=== PATIENT | male | born 1955 | race Caucasian/White ===

== ENCOUNTER → 2019-09-06 | Outpatient (CLI) | payer OTHER, MEDICARE ==
[~2019-09-06] MED LIST: ASPI325 PO; Ambien10 MG PO; CYCL10 PO; HYDR-86 PO; OXYACE5T PO
== END | disposition home or self-care (01) ==
LOC: LAB SHORT 15:35 → LAB 15:35
DX: L60.0 Ingrowing nail (principal); B35.1 Tinea unguium
CPT/HCPCS: 87102

== ENCOUNTER → 2020-08-23 | Outpatient (CLI) | payer OTHER ==
[~2020-08-23] MED LIST changes: +ARIP10 PO; +ASPI81CH PO; +FERROUS GLUCON324 M2 PO; +TERB250 PO; +VOTRIENT200 MG
== END | disposition home or self-care (01) ==
LOC: PLD 08:34 → LAB SHORT 08:34 → LAB FUT 08-23 10:05
DX: K52.9 Noninfective gastroenteritis and colitis, unspecified (principal)
CPT/HCPCS: 87015; 87045; 87046; 87205; 87899

== ENCOUNTER → 2020-09-13 | Outpatient (CLI) | payer OTHER | END | disposition home or self-care (01) | LOC: OLS 18:30 → LAB SHORT 18:30 | DX: R19.7 Diarrhea, unspecified (principal) | CPT/HCPCS: 87015; 87045; 87046; 87177; 87205; 87209; 87899 ==

== ENCOUNTER 2020-11-06 05:05 | Day surgery (SDC) | payer OTHER ==
[~2020-11-06] VITALS: Ht 172.7 cm; Wt 88.2 kg
[~2020-11-06 05:05] MED LIST changes: -ASPI81CH PO
[2020-11-06] MEDS ORDERED: ASPI81CH PO (07:55)
--- NOTE | 2020-11-06 09:13 | NUR ---
11/06/20 0913 Salima Quiñones LATE ENTRY: PT NOTED TO HAVE RED CIRCULAR AND PAPULAR RASH ON NECK DOWN TO CHEST AND ABDOMEN. SURGEON AWARE. NO FURTHER ORDERS GIVEN. PREP SOLUTION CHANGED TO BETADINE SCRUB AND PAINT. PREP WASHED OFF WITH WARM WATER BEFORE PATIENT WAS TAKEN TO PACU
== END 2020-11-06 10:02 | disposition home or self-care (01) ==
LOC: ORSCSDS 05:05
PROVIDERS: Surgery
PROC: 05H533Z Insertion of Infusion Device into Right Subclavian Vein, Percutaneous Approach (ICD-10-PCS; principal; 2020-11-06 08:30)
PROC: B5161ZA Fluoroscopy of Right Subclavian Vein using Low Osmolar Contrast, Guidance (ICD-10-PCS; principal; 2020-11-06 08:30)
DX: C64.2 Malignant neoplasm of left kidney, except renal pelvis (principal); Z87.891 Personal history of nicotine dependence; I10 Essential (primary) hypertension; Z79.899 Other long term (current) drug therapy
CPT/HCPCS: 77001; C1788; J0690; J1100; J1642; J1885; J2405; J2704; J3010; J7120

== ENCOUNTER 2021-07-05 21:36 | Emergency (ER) | payer MEDICARE, OTHER ==
[~2021-07-05] VITALS: Ht 172.7 cm; Wt 93.9 kg
[~2021-07-05 21:36] MED LIST changes: +ASPI81CH PO
[2021-07-05] MEDS ORDERED: CABOMETYX60 MG PO (22:29)
[2021-07-05] MEDS ORDERED: OMEP20ER (22:30)
[2021-07-05] MEDS ORDERED: OMEP20ER PO (22:32)
[2021-07-05 22:52] LABS: BASOPHILS ABSOLUTE AUTO 0.02 K/mm3 (0.00-0.23); BASOPHILS PERCENT AUTO 1 % (0-2); EOSINOPHILS ABSOLUTE AUTO 0.18 K/mm3 (0.00-0.68); EOSINOPHILS PERCENT AUTO 5 % (0-6); Hematocrit 48.4 % (37.0-53.0); Hemoglobin 15.9 g/dL (13.5-17.5); IMMATURE GRAN ABSOLUTE AUTO 0.01 K/mm3 (0.00-0.10); IMMATURE GRAN PERCENT AUTO 0 % (0-1); LYMPHOCYTES PERCENT AUTO 14 % (21-46); MONOCYTES ABSOLUTE AUTO 0.19 K/mm3 (0.16-1.47); MONOCYTES PERCENT AUTO 5 % (4-13); Mean Corpuscular HGB 27.3 pg (26.0-34.0); Mean Corpuscular HGB Conc 32.9 g/dL (31.5-36.5); Mean Corpuscular Volume 83 fL (80-100); Mean Platelet Volume 8.9 fL (9.1-12.4); NEUTROPHILS ABSOLUTE AUTO 2.72 K/mm3 (1.96-9.15); NEUTROPHILS PERCENT AUTO 75 % (41-73); Platelet Count 100 K/mm3 (150-400); RDW Coefficient Variation 15.1 % (11.7-14.2); RDW Standard Deviation 44.7 fL (35.1-46.3); Red Blood Cell Count 5.83 M/mm3 (4.30-5.90); White Blood Cell Count 3.62 K/mm3 (4.00-11.30)
[2021-07-05 23:12] LABS: Alanine Aminotransfer (ALT/SGP 143 U/L (12-78); Albumin/Globulin Ratio 0.8 (0.8-1.8); Alk Phos 97 U/L (50-136); Anion Gap 7 mmol/L (6-16); Aspartate Aminotrans (AST/SGOT 69 U/L (12-37); Bilirubin, Total 0.8 mg/dL (0.1-1.0); Blood Urea Nitrogen 12 mg/dL (8-24); Bun/Creatinine Ratio 10.5 (12.0-20.0); CO2, Blood 28 mmol/L (21-32); Calcium, Blood 8.1 mg/dL (8.5-10.1); Chloride, Blood 104 mmol/L (98-108); Creatinine, Blood 1.14 mg/dL (0.60-1.20); Globulin, Blood 3.7 g/dL (2.2-4.0); Glomerular Filtration Rate >60 (60-); Glucose, Blood 135 mg/dL (70-99); Potassium, Blood 3.6 mmol/L (3.5-5.5); Sodium, Blood 139 mmol/L (136-145); Total Protein, Blood 6.7 g/dL (6.4-8.2); Troponin I <0.015 ng/mL (0.000-0.040)
== END 2021-07-06 00:05 | disposition home or self-care (01) ==
LOC: ER 21:36
PROVIDERS: Student in an Organized Health Care Education/Training Program
DX: I10 Essential (primary) hypertension (principal); R51.9 Headache, unspecified; Z79.82 Long term (current) use of aspirin; Z79.899 Other long term (current) drug therapy; Z87.891 Personal history of nicotine dependence
CPT/HCPCS: 70450; 80053; 84484; 85025; 93005; 93010; 99284-25

== ENCOUNTER 2021-07-08 20:44 | Emergency (ER) | payer MEDICARE, OTHER ==
[~2021-07-08] VITALS: Ht 172.7 cm; Wt 93.9 kg
[~2021-07-08 20:44] MED LIST changes: +CABOMETYX60 MG PO; +OMEP20ER; +OMEP20ER PO
[2021-07-08] MEDS ORDERED: HYDROCODONE-AC1 EAC7 PO (21:08)
[2021-07-08] MEDS ORDERED: Norvasc5 MG PO (22:53)
== END 2021-07-08 23:09 | disposition home or self-care (01) ==
LOC: ER 20:44
DX: I16.0 Hypertensive urgency (principal); Z79.899 Other long term (current) drug therapy; Z79.82 Long term (current) use of aspirin; Z85.528 Personal history of other malignant neoplasm of kidney
CPT/HCPCS: 36415; 93005; 93010; 99284-25; A9270; J7030

== ENCOUNTER 2021-07-16 21:08 | Emergency (ER) | payer OTHER ==
[~2021-07-16] VITALS: Ht 172.7 cm; Wt 93.9 kg
[~2021-07-16 21:08] MED LIST changes: +HYDROCODONE-AC1 EAC7 PO; +Norvasc5 MG PO
[2021-07-16 22:08] LABS: Alanine Aminotransfer (ALT/SGP 418 U/L (12-78); Albumin, Blood 3.4 g/dL (3.4-5.0); Albumin/Globulin Ratio 0.9 (0.8-1.8); Alk Phos 112 U/L (50-136); Anion Gap 6 mmol/L (6-16); Aspartate Aminotrans (AST/SGOT 161 U/L (12-37); Bilirubin, Total 0.7 mg/dL (0.1-1.0); Blood Urea Nitrogen 10 mg/dL (8-24); Bun/Creatinine Ratio 9.4 (12.0-20.0); CO2, Blood 29 mmol/L (21-32); Calcium, Blood 8.5 mg/dL (8.5-10.1); Chloride, Blood 103 mmol/L (98-108); Creatinine, Blood 1.06 mg/dL (0.60-1.20); Globulin, Blood 3.7 g/dL (2.2-4.0); Glomerular Filtration Rate >60 (60-); Glucose, Blood 182 mg/dL (70-99); Potassium, Blood 3.8 mmol/L (3.5-5.5); Sodium, Blood 138 mmol/L (136-145); Total Protein, Blood 7.1 g/dL (6.4-8.2)
[2021-07-16 22:43] LABS: BASOPHILS ABSOLUTE AUTO 0.03 K/mm3 (0.00-0.23); BASOPHILS PERCENT AUTO 1 % (0-2); EOSINOPHILS ABSOLUTE AUTO 0.11 K/mm3 (0.00-0.68); EOSINOPHILS PERCENT AUTO 4 % (0-6); Hematocrit 52.1 % (37.0-53.0); Hemoglobin 16.8 g/dL (13.5-17.5); IMMATURE GRAN ABSOLUTE AUTO 0.01 K/mm3 (0.00-0.10); IMMATURE GRAN PERCENT AUTO 0 % (0-1); LYMPHOCYTES ABSOLUTE AUTO 0.68 K/mm3 (0.84-5.20); LYMPHOCYTES PERCENT AUTO 22 % (21-46); MONOCYTES ABSOLUTE AUTO 0.22 K/mm3 (0.16-1.47); MONOCYTES PERCENT AUTO 7 % (4-13); Mean Corpuscular HGB 27.3 pg (26.0-34.0); Mean Corpuscular HGB Conc 32.2 g/dL (31.5-36.5); Mean Corpuscular Volume 85 fL (80-100); Mean Platelet Volume 9.1 fL (9.1-12.4); NEUTROPHILS PERCENT AUTO 66 % (41-73); Platelet Count 142 K/mm3 (150-400); RDW Coefficient Variation 15.8 % (11.7-14.2); RDW Standard Deviation 46.5 fL (35.1-46.3); Red Blood Cell Count 6.16 M/mm3 (4.30-5.90); White Blood Cell Count 3.05 K/mm3 (4.00-11.30)
== END 2021-07-17 01:13 | disposition home or self-care (01) ==
LOC: ER 21:08
PROVIDERS: Emergency Medicine
DX: I10 Essential (primary) hypertension (principal); Z87.891 Personal history of nicotine dependence
CPT/HCPCS: 36415; 80053; 85025; 93005; 93010

== ENCOUNTER 2021-10-14 09:01 | Day surgery (SDC) | payer OTHER ==
[~2021-10-14] VITALS: Ht 172.7 cm; Wt 88.6 kg
--- NOTE | 2021-10-14 09:59 | NUR ---
History, Chart, Medications and Allergies reviewed before start of procedure. Patient confirms NPO status and agrees with scheduled surgery. Patient States Post-Procedure ride home has been arranged with daughter guillaume strickland. Elevated bp noted and reported to Dr. Barrientos.
--- NOTE | 2021-10-14 11:16 | NUR ---
10/14/21 1116 Brionna Bedoya History, Chart, Medications and Allergies reviewed before start of procedure. Patient confirms NPO status and agrees with scheduled surgery. 3-LEAD EKG REVIEWED WITH PHYSICIAN PRIOR TO START OF PROCEDURE. MONITOR INTACT WITH CONTINUOUS PULSE OXIMETRY AND INTERMITTENT BP. PATIENT DETERMINED TO BE ASA APPROPRIATE FOR PROPOFOL SEDATION PRIOR TO START OF PROCEDURE BY
--- NOTE | 2021-10-14 11:42 | NUR ---
PT AWAKE AND ALERT POST PROCEDURE. PT DENIES ABD PAIN OR NAUSEA. GIVEN PO FLUIDS, PT TOLERATES WELL. GIVEN DC INSTRUCTIONS. PT VERBALIZES AN UNDERSTANDING S QUESTIONS. IV DC'D, CATH INTACT AND PRESSURE DRESSING APPLIED. PT DRESSES SELF S DIFFICULTY. OTD IN NAD VIA WC, ESCORTED BY LUL TO SAFE RIDE HOME.
== END 2021-10-14 23:10 | disposition home or self-care (01) ==
LOC: ORSCMMR 09:01 → ORD 14:45 → ORSCMMR 14:45
PROVIDERS: Student in an Organized Health Care Education/Training Program
PROC: 0DJD8ZZ Inspection of Lower Intestinal Tract, Via Natural or Artificial Opening Endoscopic (ICD-10-PCS; principal; 2021-10-14 10:30)
DX: Z12.11 Encounter for screening for malignant neoplasm of colon (principal); Z86.010 Personal history of colon polyps; K64.8 Other hemorrhoids; K57.30 Diverticulosis of large intestine without perforation or abscess without bleeding; K29.70 Gastritis, unspecified, without bleeding; K22.70 Barrett's esophagus without dysplasia; K21.9 Gastro-esophageal reflux disease without esophagitis; D50.9 Iron deficiency anemia, unspecified; K64.4 Residual hemorrhoidal skin tags; F41.9 Anxiety disorder, unspecified; F32.A Depression, unspecified; I10 Essential (primary) hypertension; E88.09 Other disorders of plasma-protein metabolism, not elsewhere classified; Z87.891 Personal history of nicotine dependence; Z79.82 Long term (current) use of aspirin; Z79.899 Other long term (current) drug therapy
CPT/HCPCS: J2704; J7120

== ENCOUNTER 2022-04-06 12:22 | Inpatient (IN) | payer OTHER ==
[~2022-04-06] VITALS: Ht 182.9 cm; Wt 68.0 kg
[~2022-04-06 12:22] MED LIST changes: +CEFD300 PO; +CODACE30 PO; +ONDA4ODT MM
[2022-04-06 13:12] LABS: BASOPHILS ABSOLUTE AUTO 0.02 K/mm3 (0.00-0.23); BASOPHILS PERCENT AUTO 0 % (0-2); EOSINOPHILS ABSOLUTE AUTO 0.01 K/mm3 (0.00-0.68); EOSINOPHILS PERCENT AUTO 0 % (0-6); Hematocrit 44.6 % (37.0-53.0); Hemoglobin 15.4 g/dL (13.5-17.5); IMMATURE GRAN ABSOLUTE AUTO 0.02 K/mm3 (0.00-0.10); IMMATURE GRAN PERCENT AUTO 0 % (0-1); LYMPHOCYTES ABSOLUTE AUTO 1.48 K/mm3 (0.84-5.20); LYMPHOCYTES PERCENT AUTO 20 % (21-46); MONOCYTES ABSOLUTE AUTO 0.72 K/mm3 (0.16-1.47); MONOCYTES PERCENT AUTO 10 % (4-13); Mean Corpuscular HGB 32.9 pg (26.0-34.0); Mean Corpuscular HGB Conc 34.5 g/dL (31.5-36.5); Mean Corpuscular Volume 95 fL (80-100); Mean Platelet Volume 11.7 fL (9.1-12.4); NEUTROPHILS ABSOLUTE AUTO 5.21 K/mm3 (1.96-9.15); NEUTROPHILS PERCENT AUTO 70 % (41-73); Platelet Count 118 K/mm3 (150-400); RDW Coefficient Variation 14.6 % (11.7-14.2); RDW Standard Deviation 51.1 fL (35.1-46.3); Red Blood Cell Count 4.68 M/mm3 (4.30-5.90); White Blood Cell Count 7.46 K/mm3 (4.00-11.30)
[2022-04-06 13:47] LABS: Albumin, Blood 3.3 g/dL (3.4-5.0); Creatinine, Blood 2.6 mg/dL (0.60-1.20); Globulin, Blood 3.4 g/dL (2.2-4.0); Potassium, Blood 3.5 mmol/L (3.5-5.5); Total Protein, Blood 6.7 g/dL (6.4-8.2)
[2022-04-06] MEDS ORDERED: CABOMETYX40 MG PO (14:26)
[2022-04-06] MEDS ORDERED: ESCI10 PO (14:27)
[2022-04-06] MEDS ORDERED: IMODIUM A-D2 M1 (20:26)
--- NOTE | 2022-04-07 04:58 | NUR ---
Summary: Patient admitted for ER tonight with complaints of N/V and diarrhea. He states he was been feeling weak and had a fall at home. Patient has a scab and swelling to his nose. He stated he hit the corner of a cabinet when he fell. Patient AOx4. VSS. BP soft. IV fluids running. Provided patient soup and apple sauce. No episodes of nausea or emisis this evening. Mild pain to his L ribs. Repositioned patient to assist with discomfort. No diarrhea this shift will collect stool sample next time patient has a BM.
[2022-04-07 05:29] LABS: BASOPHILS ABSOLUTE AUTO 0.01 K/mm3 (0.00-0.23); BASOPHILS PERCENT AUTO 0 % (0-2); EOSINOPHILS ABSOLUTE AUTO 0.04 K/mm3 (0.00-0.68); EOSINOPHILS PERCENT AUTO 1 % (0-6); Hematocrit 38.1 % (37.0-53.0); Hemoglobin 12.4 g/dL (13.5-17.5); IMMATURE GRAN ABSOLUTE AUTO 0.01 K/mm3 (0.00-0.10); IMMATURE GRAN PERCENT AUTO 0 % (0-1); LYMPHOCYTES ABSOLUTE AUTO 1.29 K/mm3 (0.84-5.20); LYMPHOCYTES PERCENT AUTO 39 % (21-46); MONOCYTES ABSOLUTE AUTO 0.24 K/mm3 (0.16-1.47); MONOCYTES PERCENT AUTO 7 % (4-13); Mean Corpuscular HGB Conc 32.5 g/dL (31.5-36.5); Mean Corpuscular Volume 98 fL (80-100); Mean Platelet Volume 10.9 fL (9.1-12.4); NEUTROPHILS ABSOLUTE AUTO 1.71 K/mm3 (1.96-9.15); NEUTROPHILS PERCENT AUTO 52 % (41-73); RDW Coefficient Variation 15.1 % (11.7-14.2); RDW Standard Deviation 54.9 fL (35.1-46.3); Red Blood Cell Count 3.87 M/mm3 (4.30-5.90)
[2022-04-07 05:33] LABS: Albumin, Blood 2.3 g/dL (3.4-5.0); Albumin/Globulin Ratio 0.8 (0.8-1.8); Bilirubin, Total 0.9 mg/dL (0.1-1.0); Bun/Creatinine Ratio 11.9 (12.0-20.0); Calcium, Blood 7.2 mg/dL (8.5-10.1); Creatinine, Blood 1.94 mg/dL (0.60-1.20); Globulin, Blood 2.9 g/dL (2.2-4.0); Potassium, Blood 4.6 mmol/L (3.5-5.5); Total Protein, Blood 5.2 g/dL (6.4-8.2)
[2022-04-07 05:39] LABS: Platelet Count 76 K/mm3 (150-400)
--- NOTE | 2022-04-07 16:57 | NUR ---
Shift Summary AOx4, pleasant/cooperative. Worked with PT/OT. Up in chair for breakfast and plans to be up for dinner. Doesn't tolerate sitting up for any longer than 15-20 minutes due to neck pain sustained from fall. C/O L rib/chest pain with breathing and during movement. Received T.O. from Dr. Faustin for 2V Chest XR. Continues with loose frequent diarrhea. Both UA's and GI panel has been cancelled. Tele: SR 80's. Positive orthostasis (see charting) with mild but not worsening dizziness per physical therapy. Mild nausea but no emesis, declined antiemetic. 1p SBA with gait belt to bathroom. Mixed continence with bowels, continent of urine.
--- NOTE | 2022-04-08 04:02 | NUR ---
SHIFT SUMMARY NO ACUTE CHANGES TO PT CONDITION. PT HAS SECOND BAG OF LR RUNNING AT 100/HR. THIS WILL MOST LIKELY BE HIS LAST BAG OF FLUIDS THE ORDER IS X 1 DAY. PT CONTINUES TO HAVE SOME BRUISING AND ABRASIONS TO HIS FACE FROM HIS FALL AT HOME. PT HAS NO CURRENT COMPLAINTS AT THIS TIME. CALL LIGHT IS WITHIN HIS REACH.
[2022-04-08 08:38] LABS: Bun/Creatinine Ratio 15.2 (12.0-20.0); Calcium, Blood 7.6 mg/dL (8.5-10.1); Creatinine, Blood 0.92 mg/dL (0.60-1.20); Potassium, Blood 4.1 mmol/L (3.5-5.5)
[2022-04-08 10:10] LABS: C DIFFICILE DNA NEGATIVE (Negative)
--- NOTE | 2022-04-08 15:21 | NUR ---
Discharge Summary A/Ox4, pleasant/cooperative. Still having diarrhea, but family as well as patient states this has been chronically ongoing. No nausea or emesis. Tolerating regular diet, poor appetite however. D/C to home with HH. Reviewed d/c papers with patient and daughter at bedside, questions answered to her satisfaction. No new meds. Escorted by CLOTH CALENDER via w/c. Belongings sent home with daughter.
== END 2022-04-08 15:17 | disposition home health service (06) | DRG 683 ==
LOC: ER 12:22 → MEDS 16:44
PROVIDERS: Emergency Medicine; Internal Medicine; Student in an Organized Health Care Education/Training Program; ADMIT Internal Medicine
PROC: 3E0234Z Introduction of Serum, Toxoid and Vaccine into Muscle, Percutaneous Approach (ICD-10-PCS; principal; 2022-04-06)
DX: N17.9 Acute kidney failure, unspecified (principal); C64.9 Malignant neoplasm of unspecified kidney, except renal pelvis; D61.818 Other pancytopenia; Z23 Encounter for immunization; S00.81XA Abrasion of other part of head, initial encounter; E86.0 Dehydration; K52.9 Noninfective gastroenteritis and colitis, unspecified; K21.9 Gastro-esophageal reflux disease without esophagitis; L27.0 Generalized skin eruption due to drugs and medicaments taken internally; T45.1X5A Adverse effect of antineoplastic and immunosuppressive drugs, initial encounter; Z90.5 Acquired absence of kidney; Z90.49 Acquired absence of other specified parts of digestive tract; Z98.890 Other specified postprocedural states; Z87.891 Personal history of nicotine dependence; W18.30XA Fall on same level, unspecified, initial encounter; Y92.9 Unspecified place or not applicable
CPT/HCPCS: 36415; 51798; 70450; 71045; 71046; 72125; 74177; 80048; 80053; 83690; 84484; 85025; 87493; 90471; 90714; 93005; 93010; 96361; 96374; 96375; 97110; 97116; 97162; 97165; 97530; 97535; 99285-25; A9270; J1644; J2405; J2765; J7030; J7120; Q9967

== ENCOUNTER → 2022-04-13 | Outpatient (CLI) | payer OTHER ==
[~2022-04-13] MED LIST changes: +CABOMETYX40 MG PO; +ESCI10 PO; +IMODIUM A-D2 M1; +IMODIUM A-D2 M1 PO; +MAGNESIUM OXID500 MG PO; +ONDA4ODT SL
== END ==
LOC: LAB SHORT 20:33 → LAB 20:33
DX: R19.7 Diarrhea, unspecified (principal)
CPT/HCPCS: 87015; 87045; 87046; 87205; 87899

== ENCOUNTER → 2022-05-05 | Outpatient (CLI) | payer OTHER | END | disposition home or self-care (01) | DX: C64.2 Malignant neoplasm of left kidney, except renal pelvis (principal) ==

== ENCOUNTER → 2022-05-19 | Outpatient (CLI) | payer OTHER ==
[2022-05-19 15:54] LABS: BASOPHILS ABSOLUTE AUTO 0.06 K/mm3 (0.00-0.23); BASOPHILS PERCENT AUTO 2 % (0-2); EOSINOPHILS PERCENT AUTO 9 % (0-6); Hematocrit 39.6 % (37.0-53.0); Hemoglobin 12.9 g/dL (13.5-17.5); IMMATURE GRAN PERCENT AUTO 0 % (0-1); LYMPHOCYTES ABSOLUTE AUTO 1.23 K/mm3 (0.84-5.20); LYMPHOCYTES PERCENT AUTO 37 % (21-46); MONOCYTES ABSOLUTE AUTO 0.24 K/mm3 (0.16-1.47); MONOCYTES PERCENT AUTO 7 % (4-13); Mean Corpuscular HGB 31.8 pg (26.0-34.0); Mean Corpuscular HGB Conc 32.6 g/dL (31.5-36.5); Mean Corpuscular Volume 98 fL (80-100); Mean Platelet Volume 10.7 fL (9.1-12.4); NEUTROPHILS ABSOLUTE AUTO 1.51 K/mm3 (1.96-9.15); NEUTROPHILS PERCENT AUTO 45 % (41-73); Platelet Count 129 K/mm3 (150-400); RDW Coefficient Variation 13.6 % (11.7-14.2); RDW Standard Deviation 48.9 fL (35.1-46.3); Red Blood Cell Count 4.06 M/mm3 (4.30-5.90); White Blood Cell Count 3.34 K/mm3 (4.00-11.30)
== END | disposition home or self-care (01) ==
LOC: LAB 14:04 → LAB SHORT 14:04
PROVIDERS: Internal Medicine Hematology & Oncology
DX: C64.1 Malignant neoplasm of right kidney, except renal pelvis (principal); D61.818 Other pancytopenia
CPT/HCPCS: 85025

== ENCOUNTER 2022-07-15 19:31 | Inpatient (IN) | payer OTHER ==
[~2022-07-15] VITALS: Ht 172.7 cm; Wt 68.0 kg
[2022-07-15 20:13] LABS: BASOPHILS ABSOLUTE AUTO 0.04 K/mm3 (0.00-0.23); BASOPHILS PERCENT AUTO 1 % (0-2); EOSINOPHILS ABSOLUTE AUTO 0.15 K/mm3 (0.00-0.68); EOSINOPHILS PERCENT AUTO 3 % (0-6); Hematocrit 35.4 % (37.0-53.0); Hemoglobin 11.3 g/dL (13.5-17.5); IMMATURE GRAN ABSOLUTE AUTO 0.02 K/mm3 (0.00-0.10); IMMATURE GRAN PERCENT AUTO 0 % (0-1); LYMPHOCYTES ABSOLUTE AUTO 1.05 K/mm3 (0.84-5.20); LYMPHOCYTES PERCENT AUTO 21 % (21-46); MONOCYTES ABSOLUTE AUTO 0.48 K/mm3 (0.16-1.47); MONOCYTES PERCENT AUTO 10 % (4-13); Mean Corpuscular HGB 31.1 pg (26.0-34.0); Mean Corpuscular HGB Conc 31.9 g/dL (31.5-36.5); Mean Corpuscular Volume 98 fL (80-100); Mean Platelet Volume 9.2 fL (9.1-12.4); NEUTROPHILS ABSOLUTE AUTO 3.31 K/mm3 (1.96-9.15); NEUTROPHILS PERCENT AUTO 66 % (41-73); Platelet Count 219 K/mm3 (150-400); RDW Coefficient Variation 13.6 % (11.7-14.2); RDW Standard Deviation 48.8 fL (35.1-46.3); Red Blood Cell Count 3.63 M/mm3 (4.30-5.90); White Blood Cell Count 5.05 K/mm3 (4.00-11.30)
[2022-07-15 20:28] LABS: Source, Urine Clean Catch
[2022-07-15 20:37] LABS: Bilirubin, Urine Neg (Neg); Blood, Urine Neg (Neg); Glucose Qualitative, Urine Neg (Neg); Ketones, Urine Neg (Neg); Leukocyte Esterase, Urine Neg (Neg); Nitrite, Urine Neg (Neg); Protein, Urine 1+ (Neg); Specific Gravity, Urine 1.015 (1.003-1.022); Urobilinogen, Urine NORM (Normal)
[2022-07-15 20:39] LABS: Albumin, Blood 2.7 g/dL (3.4-5.0); Albumin/Globulin Ratio 0.7 (0.8-1.8); Bilirubin, Total 0.4 mg/dL (0.1-1.0); Bun/Creatinine Ratio 12.6 (12.0-20.0); Calcium, Blood 8.5 mg/dL (8.5-10.1); Creatinine, Blood 1.03 mg/dL (0.60-1.20); Globulin, Blood 3.8 g/dL (2.2-4.0); Potassium, Blood 4.1 mmol/L (3.5-5.5); Total Protein, Blood 6.5 g/dL (6.4-8.2)
[2022-07-15 20:43] LABS: Appearance, Urine Clear (Clear); Color, Urine Pale Yellow (P-Yellow)
[2022-07-15 21:24] LABS: Influenza A, PCR NEGATIVE (NEGATIVE); Influenza B, PCR NEGATIVE (NEGATIVE); Resp Syncytial Virus, PCR NEGATIVE (NEGATIVE); SARS-Cov-2 (COVID-19) PCR, MMC NEGATIVE (NEGATIVE)
--- NOTE | 2022-07-16 02:17 | NUR ---
ASSUMPTION OF CARE THIS RN ASSUMED CARE OF PT AT 0105. PT ARRIVED FROM ER, REPORT RECEIVED FROM NEFTALI BERRIOS. PT ARRIVED VIA WHEELCHAIR, W/HIS BELONGINGS. PT ON RA. PT ABLE TO TRANSFER SELF TO HOSPITAL BED W/NO ASSISTANCE. PT A&O X4; PLEASANT UPON INTERACTION. PT IS RESPONDING AND ANSWERING QUESTIONS APPROPRIATELY. NEURO WNL; PERRLA, ABLE TO FOLLOW COMMANDS, STRENGTH EQUAL AND STRONG BILATERALLY, NO FACIAL DROOP, AND PT COHERENT AND MAKING SENSE WHEN TALKING. PT DENIES ANY STROKE SX. PT ORIENTED TO ROOM. EDUCATED ON SAFETY AND FALL PREVENTION. PT USING URINAL AT BEDSIDE. 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 PT VERBALIZES UNDERSTANDING OF EDUCATION. SKIN IS CLEAR EXCEPT VARIOUS BRUISING AND SMALL SCABS SCATTERED T/O. PT DENIES SOB, CP OR PRESSURE. MINIMAL EDEMA NOTED IN HANDS/FINGERS AND FEET. PT STATES EARLIER THEY WERE "SWOLLEN". PT DENIES ANY NUMBNESS OR TINGLING IN EXTREMITIES OR ELSE WHERE. TYLENOL ADMINSTERED FROM HEADACHE AND GENERAL ACHING RATED 3/10. PT ABLE TO SWALLOW MEDICATION FINE AND DRINKS WATER FINE. NO EVIDENCE OF ASPIRATION OR INABILITY TO SAFELY DRINK FLUIDS. NO EVIDENCE OF SEIZURE LIKE ACTIVITY AT THIS TIME. PT DENIES ANY NEEDS OR CONCERNS AT THIS TIME.
--- NOTE | 2022-07-16 02:23 | NUR ---
THIS RN OFFERED SUPPORT AND ENCOURAGEMENT WITH PT STATUS AND NEW FINDING OF MASS IN HIS BRAIN. THIS RN LISTENED TO PT. PT EXPRESSES SADNESS OVER THIS BUT ALSO PEACE WITH CURRENT CONDITION. PT SEEMS CALM. PT EXPRESSES HE WOULD LIKE TO SEE A ANESTHESIOLOGIST ATTENDING WELL ASSISTANCE TO FILL OUT ADVANCED DIRECTIVE, WILL, AND OTHER FORMS.
[2022-07-16 04:08] LABS: BASOPHILS ABSOLUTE AUTO 0.04 K/mm3 (0.00-0.23); BASOPHILS PERCENT AUTO 1 % (0-2); EOSINOPHILS ABSOLUTE AUTO 0.05 K/mm3 (0.00-0.68); EOSINOPHILS PERCENT AUTO 1 % (0-6); Hematocrit 37.2 % (37.0-53.0); Hemoglobin 11.9 g/dL (13.5-17.5); IMMATURE GRAN ABSOLUTE AUTO 0.01 K/mm3 (0.00-0.10); IMMATURE GRAN PERCENT AUTO 0 % (0-1); LYMPHOCYTES ABSOLUTE AUTO 0.63 K/mm3 (0.84-5.20); LYMPHOCYTES PERCENT AUTO 14 % (21-46); MONOCYTES ABSOLUTE AUTO 0.14 K/mm3 (0.16-1.47); MONOCYTES PERCENT AUTO 3 % (4-13); Mean Corpuscular HGB 30.8 pg (26.0-34.0); Mean Corpuscular Volume 96 fL (80-100); Mean Platelet Volume 9.1 fL (9.1-12.4); NEUTROPHILS ABSOLUTE AUTO 3.51 K/mm3 (1.96-9.15); NEUTROPHILS PERCENT AUTO 80 % (41-73); Platelet Count 207 K/mm3 (150-400); RDW Coefficient Variation 13.4 % (11.7-14.2); RDW Standard Deviation 47.7 fL (35.1-46.3); Red Blood Cell Count 3.86 M/mm3 (4.30-5.90); White Blood Cell Count 4.38 K/mm3 (4.00-11.30)
[2022-07-16 04:30] LABS: Prothrombin Time Results 10.5 Sec (9.7-11.5)
[2022-07-16 04:36] LABS: Albumin, Blood 2.7 g/dL (3.4-5.0); Albumin/Globulin Ratio 0.6 (0.8-1.8); Bilirubin, Total 0.4 mg/dL (0.1-1.0); Bun/Creatinine Ratio 12.9 (12.0-20.0); Calcium, Blood 8.7 mg/dL (8.5-10.1); Creatinine, Blood 0.85 mg/dL (0.60-1.20); Globulin, Blood 4.2 g/dL (2.2-4.0); Potassium, Blood 4.5 mmol/L (3.5-5.5); Total Protein, Blood 6.9 g/dL (6.4-8.2)
--- NOTE | 2022-07-16 05:04 | NUR ---
SHIFT SUMMARY NO ACUTE CHANGES FROM ASSUMPTION OF CARE NOTE. VSS. PT RESTED SOME THROUGHOUT SHIFT. Q4 NEURO CHECKS COMPLETED AND WNL. PT DENIES ANY MORE EPISODES OF STROKE LIKE SYMPTOMS. PT DID NOT HAVE ANY SEIZURE LIKE ACTIVITY AND PT DENIES ANY SINCE THE ONE EPISODE. SEIZURES PADS IN PLACE PER ORDERS. PT HAS BEEN USING URINAL AT BEDSIDE. CALL LIGHT WITHIN REACH AND PT CALLS APPROPRIATELY. WILL UPDATE ONCOMING RN
--- NOTE | 2022-07-16 16:22 | NUR ---
[facility] care visit conducted. Patient is lying in bed in the dark and alert. He immediately tells me about his cancer and the metasteses in his brain. He talks about how he is guided through challenging times by his josefina and that he has great hopes and peace about the afterlife. He states he has fears about the path to get there in terms of the unknowns, the possible pain or suffering and what his mentation will be like in the final days. He explains about his desires to honor God until the end. Patient explains that he still has many family members and friends that he will want to talk to and he shares his concerns about all his kids and grandkids knowing God in a real way. I normalize his feelings and fears, listen empathically, and provide anxiety containment, theological insights, recitation of scripture and prayer. Patient responded well and showed signs of increased peace and decreased fear. I will continue to remain available to patient and family.
--- NOTE | 2022-07-16 17:08 | NUR ---
SHIFT SUMMARY PT A/OX4. AT BEGINNING OF SHIFT PT WAS REFUSING SOME CARE SO THAT HE COULD SLEEP. TOWARDS END OF SHIFT PT FULLY COOPERATIVE OF CARE. VSS THROUGHOUT SHIFT WITH O2 SATS >97% ON RA. NO REPORT OF CHEST PAIN/PRESSURE THROUGHOUT SHIFT. NO REPORT OF SOB/DYSPNEA THROUGHOUT SHIFT. FAMILY UPDATED BY PT INDEPENDENT IN ROOM. NEURO CHECKS WNL THROUGHOUT SHIFT. KEPPRA GIVEN PER EMAR. BED IN LOWEST POSITION. CALL LIGHT WITHIN REACH.
--- NOTE | 2022-07-16 22:53 | NUR ---
TRANSFER TO [place] [id number] REPORT GIVEN TO NEFTALI DELACRUZ AT APPROXIMATELY 2225. PT A&Ox4, CALLS AND COMMUNICATES NEEDS APPRORPIATELY. VSS, SpO2> 92% RA, DENIES SOB. BP STABLE, PT NOT ON TELE, DENIES CP/PRESSURE. NEURO STATUS REMAINS UNCHANGED FROM FROM PERVIOUS ASSESSMENT. PT IND IN ROOM, CONTINENT OF URINE AND BOWEL. DENIES PAIN. AT APPROXIMATELY 2250 PT TRANSFERED TO [place] [address] VIA WHEELCHAIR BY CLINICAL STAFF, ALL PERSONAL BELONGINGS WITH PT.
--- NOTE | 2022-07-16 23:19 | NUR ---
2300 [place] ARRIVED VIA W/C FROM [facility]. ASSESSMENT COMPLETE. NO S/S OF STROKE THAT HE PREVISOULY EXHIBITED IN ER. NO FACIAL DROOP, ORINETED X4, EQUAL PLASTIC PRINTER. CONTINUE Q 4 NEURO CHECKS. PT DENIES PAIN/SOB. PT AMBULATING INDEPENDENTLY. PT ATE 2 HALFS OF A SANDWICH. SEIZURE PRECAUTIONS IN PLACE. CALL LIGHT IN REACH, ABLE TO MAKE NEEDS KNOWN.
--- NOTE | 2022-07-17 04:21 | NUR ---
SHIFT SUMMARY NO CHANGES IN PT CONDITION SINCE TRANSFER NOTE. PT STABLE, DENIES PAIN/SOB/SIGNS OF DISTRESS. PT ORINETED X4, AMBULATING INDEPENDENTLY IN ROOM. ABLE TO MAKE NEEDS KNOWN, CALL LIGHT IN REACH.
--- NOTE | 2022-07-17 11:46 | NUR ---
Brief supportive visit this AM. Spoke with Dr Barth prior to visiting Pt and discussed case. Pt resting in bed and is A&O. Pt's two sisters at bedside. Offered therapeutic listening as Pt discusses plan to transfer to [facility]. Pt denies anxiety and reports having a deep congregational josefina. Continued therapeutic listening. Sisters report no concerns at this time. Palliative Care will remain available
--- NOTE | 2022-07-17 17:58 | NUR ---
COBRA TRANSFER- PT IS ALERT AND ORIENTED X4. NO SYMPTOMS REPORTED BY PT. INDEPENDENT IN THE ROOM. PT FAMILY IN MOST OF THE DAY, REQUESTED A NOTARY FOR LEGAL DOCUMENTS. PT IS WAITING FOR COBRA TRANSFER. TRANSFER IS SCHEDULED FOR 1729. . ONCOMING NURSE WAS NOT AVAILABLE. REPORT GIVEN TO VICTORIA Serrano RN.
--- NOTE | 2022-07-17 18:19 | NUR ---
[facility]RA TRANSFER- PT LEFT AT 1814
== END 2022-07-17 18:13 | disposition short-term general hospital (02) | DRG 54 ==
LOC: ER 19:31 → PCU 19:32 → MEDS 07-16 23:00
PROVIDERS: Emergency Medicine; ADMIT Student in an Organized Health Care Education/Training Program
DX: C79.31 Secondary malignant neoplasm of brain (principal); G93.6 Cerebral edema; C64.2 Malignant neoplasm of left kidney, except renal pelvis; G40.109 Localization-related (focal) (partial) symptomatic epilepsy and epileptic syndromes with simple partial seizures, not intractable, without status epilepticus; Z20.822 Contact with and (suspected) exposure to COVID-19; Z66 Do not resuscitate; Z28.21 Immunization not carried out because of patient refusal; K44.9 Diaphragmatic hernia without obstruction or gangrene; Z87.891 Personal history of nicotine dependence; Z90.5 Acquired absence of kidney; Z98.890 Other specified postprocedural states; Z90.49 Acquired absence of other specified parts of digestive tract; Z79.899 Other long term (current) drug therapy
CPT/HCPCS: 0241U; 36415; 70450; 70553; 80053; 82947; 83735; 85025; 85610; 93005; 93010; 96365; 96375; 99285-25; A9270; A9579; G0378; J1100; J1953; J7030

== ENCOUNTER 2022-12-27 09:22 | Emergency (ER) | payer OTHER ==
[~2022-12-27] VITALS: Ht 172.7 cm; Wt 77.1 kg
[2022-12-27 10:06] LABS: BASOPHILS ABSOLUTE AUTO 0.03 K/mm3 (0.00-0.23); BASOPHILS PERCENT AUTO 1 % (0-2); EOSINOPHILS ABSOLUTE AUTO 0.19 K/mm3 (0.00-0.68); EOSINOPHILS PERCENT AUTO 3 % (0-6); Hematocrit 42.8 % (37.0-53.0); Hemoglobin 14.7 g/dL (13.5-17.5); IMMATURE GRAN ABSOLUTE AUTO 0.03 K/mm3 (0.00-0.10); IMMATURE GRAN PERCENT AUTO 1 % (0-1); LYMPHOCYTES ABSOLUTE AUTO 1.06 K/mm3 (0.84-5.20); LYMPHOCYTES PERCENT AUTO 19 % (21-46); MONOCYTES ABSOLUTE AUTO 0.42 K/mm3 (0.16-1.47); MONOCYTES PERCENT AUTO 7 % (4-13); Mean Corpuscular HGB 27.7 pg (26.0-34.0); Mean Corpuscular HGB Conc 34.3 g/dL (31.5-36.5); Mean Corpuscular Volume 81 fL (80-100); NEUTROPHILS ABSOLUTE AUTO 3.93 K/mm3 (1.96-9.15); NEUTROPHILS PERCENT AUTO 70 % (41-73); Platelet Count 107 K/mm3 (150-400); RDW Coefficient Variation 13.2 % (11.7-14.2); RDW Standard Deviation 38.2 fL (35.1-46.3); White Blood Cell Count 5.66 K/mm3 (4.00-11.30)
[2022-12-27] MEDS ORDERED: INLYTA1 MG PO (10:13)
[2022-12-27] MEDS ORDERED: QUETIAPINE FUMA25 MG PO (10:13)
[2022-12-27] MEDS ORDERED: Keppra750 MG PO (10:13)
[2022-12-27] MEDS ORDERED: ESCI10 PO (10:13)
[2022-12-27] MEDS ORDERED: LEVE500 PO (10:14)
[2022-12-27 10:18] LABS: Albumin, Blood 3.1 g/dL (3.4-5.0); Albumin/Globulin Ratio 0.8 (0.8-1.8); Bilirubin, Total 0.9 mg/dL (0.1-1.0); Bun/Creatinine Ratio 10.7 (12.0-20.0); Calcium, Blood 8.2 mg/dL (8.5-10.1); Creatinine, Blood 1.03 mg/dL (0.60-1.20); Globulin, Blood 3.8 g/dL (2.2-4.0); Potassium, Blood 3.7 mmol/L (3.5-5.5); Total Protein, Blood 6.9 g/dL (6.4-8.2)
[2022-12-27 10:27] LABS: International Normalized Ratio 1.03; Prothrombin Time Results 10.8 Sec (9.7-11.5)
[2022-12-27] MEDS ORDERED: HYDR1TAB94 PO (11:53)
[2022-12-27 12:00] VITALS: BP 139/81
== END 2022-12-27 12:20 | disposition home or self-care (01) ==
LOC: ER 09:22
PROVIDERS: Emergency Medicine
DX: R51.9 Headache, unspecified (principal); C79.31 Secondary malignant neoplasm of brain; C64.9 Malignant neoplasm of unspecified kidney, except renal pelvis; Z87.891 Personal history of nicotine dependence
CPT/HCPCS: 70450; 80053; 85025; 85610; 85730; 96374; 96375; 99284-25; J1200; J1885; J2270; J2405; J2765

== ENCOUNTER → 2023-04-14 | Outpatient (CLI) | payer OTHER ==
[~2023-04-14] MED LIST changes: +HYDR1TAB94 PO; +INLYTA1 MG PO; +Keppra750 MG PO; +LEVE500 PO; +QUETIAPINE FUMA25 MG PO
== END ==
LOC: LAB 16:30 → LAB SHORT 16:30
DX: B35.1 Tinea unguium (principal)
CPT/HCPCS: 87102

== ENCOUNTER 2023-05-21 12:09 | Emergency (ER) | payer OTHER ==
[~2023-05-21] VITALS: Ht 172.7 cm; Wt 68.0 kg
[2023-05-21 12:53] LABS: BASOPHILS ABSOLUTE AUTO 0.07 K/mm3 (0.00-0.23); BASOPHILS PERCENT AUTO 1 % (0-2); EOSINOPHILS ABSOLUTE AUTO 0.26 K/mm3 (0.00-0.68); EOSINOPHILS PERCENT AUTO 4 % (0-6); Hematocrit 30.2 % (37.0-53.0); Hemoglobin 9.3 g/dL (13.5-17.5); IMMATURE GRAN ABSOLUTE AUTO 0.02 K/mm3 (0.00-0.10); IMMATURE GRAN PERCENT AUTO 0 % (0-1); LYMPHOCYTES ABSOLUTE AUTO 1.66 K/mm3 (0.84-5.20); LYMPHOCYTES PERCENT AUTO 25 % (21-46); MONOCYTES ABSOLUTE AUTO 0.71 K/mm3 (0.16-1.47); MONOCYTES PERCENT AUTO 11 % (4-13); Mean Corpuscular HGB 24.6 pg (26.0-34.0); Mean Corpuscular HGB Conc 30.8 g/dL (31.5-36.5); Mean Corpuscular Volume 80 fL (80-100); Mean Platelet Volume 9.1 fL (9.1-12.4); NEUTROPHILS ABSOLUTE AUTO 3.83 K/mm3 (1.96-9.15); NEUTROPHILS PERCENT AUTO 59 % (41-73); Platelet Count 480 K/mm3 (150-400); RDW Coefficient Variation 14.7 % (11.7-14.2); Red Blood Cell Count 3.78 M/mm3 (4.30-5.90); White Blood Cell Count 6.55 K/mm3 (4.00-11.30)
[2023-05-21 13:15] LABS: Albumin, Blood 2.6 g/dL (3.4-5.0); Albumin/Globulin Ratio 0.5 (0.8-1.8); Bilirubin, Total 0.4 mg/dL (0.1-1.0); Bun/Creatinine Ratio 16.3 (12.0-20.0); Calcium, Blood 9.8 mg/dL (8.5-10.1); Creatinine, Blood 0.74 mg/dL (0.60-1.20); Globulin, Blood 4.9 g/dL (2.2-4.0); Magnesium, Blood 1.8 mg/dL (1.6-2.4); Total Protein, Blood 7.5 g/dL (6.4-8.2)
[2023-05-21] MEDS ORDERED: OXYC5 (13:18)
[2023-05-21] MEDS ORDERED: GABA100 (13:18)
[2023-05-21] MEDS ORDERED: IBUP200 (13:18)
[2023-05-21 16:00] LABS: Source, Urine Clean Catch
[2023-05-21 16:16] LABS: Appearance, Urine Clear (Clear); Bilirubin, Urine Neg (Neg); Blood, Urine Neg (Neg); Color, Urine Yellow (P-Yellow); Glucose Qualitative, Urine Neg (Neg); Ketones, Urine Neg (Neg); Leukocyte Esterase, Urine Neg (Neg); Nitrite, Urine Neg (Neg); Protein, Urine 2+ (Neg); Urobilinogen, Urine 1+ (Normal)
--- NOTE | 2023-05-21 16:38 | NUR ---
ED Palliative Care Consult Spoke with Dr Bauman and discussed case. Pt to the ED for Failure to Thrive. 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 Pt not meet criteria for admission. Goals of care conversation may be beneficial including considering hospice. Pt resting on gurney and daughter Fernanda at bedside. Pt is A&OX4 but appears to struggle with understanding conversation. Engaged in therapeutic conversation regarding hospice. Educated on hospice philosophy. Pt reports inability to make decision. Daughter Steph is HPOA and is agreeable with hospice services. Discussed hospice agencies to choose from. Steph requests [facility]. Spoke with ED TRU Zhong and discussed case. Farheen will send referral to [facility]. Palliative Care will remain available
[2023-05-21 16:59] LABS: Bacteria Few /hpf; Hyaline Casts 0-2 /lpf (0-2); Mucus Light (0-Heavy); Red Blood Cells, Urine 0-2 /hpf (0-2); Squamous Epithelial Cells Rare /hpf (Few); White Blood Cells, Urine 0-2 /hpf (0-5)
[2023-05-21 17:00] VITALS: BP 101/75
[2023-05-21] MEDS ORDERED: DECADRON6 M1 PO (17:13)
[2023-05-21] MEDS ORDERED: HYDMOR2 PO (17:13)
== END 2023-05-21 17:30 | disposition home or self-care (01) ==
LOC: ER 12:09
PROVIDERS: Emergency Medicine; Physician Assistant
DX: C79.31 Secondary malignant neoplasm of brain (principal); G93.6 Cerebral edema; R56.9 Unspecified convulsions; R62.7 Adult failure to thrive; Z85.528 Personal history of other malignant neoplasm of kidney; Z90.5 Acquired absence of kidney; Z79.899 Other long term (current) drug therapy; Z87.891 Personal history of nicotine dependence
CPT/HCPCS: 51701; 70450; 71046; 80053; 81001; 82550; 83735; 85025; 93005; 93010; 96361; 96374; 96375; 99285-25; J1100; J2270; J2405; J7030

== ENCOUNTER 2024-02-10 19:22 | Emergency (ER) | payer OTHER ==
[~2024-02-10] VITALS: Ht 172.7 cm; Wt 90.7 kg
[~2024-02-10 19:22] MED LIST changes: +DECADRON6 M1 PO; +GABA100; +HYDMOR2 PO; +IBUP200; +OXYC5; +Propofol 10mg/ml 20 ml Vial (Procedural) IV ONE; +Rocuronium Bromide 10 MG/ML 5ML Injection IV ONE
[2024-02-10] MEDS ORDERED: NS 1,000 ML IV ONE (19:31)
[2024-02-10] MEDS ORDERED: NS 1,000 ML IV SCH (19:35)
[2024-02-10] MEDS ORDERED: propofoL 100 ML IV ONE ×2 (19:37→23:20)
[2024-02-10] MEDS ORDERED: propofoL 100 ML IV SCH (19:40)
[2024-02-10] MEDS ORDERED: Propofol 10mg/ml 20 ml Vial (Procedural) IV ONE (19:40)
[2024-02-10] MEDS ORDERED: levETIRAcetam 1,500 MG in NS 100 ML IV ONE (19:50)
[2024-02-10 19:54] LABS: BASOPHILS ABSOLUTE AUTO 0.05 K/mm3 (0.00-0.23); BASOPHILS PERCENT AUTO 0 % (0-2); EOSINOPHILS ABSOLUTE AUTO 0.21 K/mm3 (0.00-0.68); EOSINOPHILS PERCENT AUTO 2 % (0-6); Hematocrit 52.4 % (37.0-53.0); Hemoglobin 16.4 g/dL (13.5-17.5); IMMATURE GRAN ABSOLUTE AUTO 0.05 K/mm3 (0.00-0.10); IMMATURE GRAN PERCENT AUTO 0 % (0-1); LYMPHOCYTES ABSOLUTE AUTO 3.31 K/mm3 (0.84-5.20); LYMPHOCYTES PERCENT AUTO 30 % (21-46); MONOCYTES ABSOLUTE AUTO 1.13 K/mm3 (0.16-1.47); MONOCYTES PERCENT AUTO 10 % (4-13); Mean Corpuscular HGB 27.2 pg (26.0-34.0); Mean Corpuscular HGB Conc 31.3 g/dL (31.5-36.5); Mean Corpuscular Volume 87 fL (80-100); Mean Platelet Volume 9.6 fL (9.1-12.4); NEUTROPHILS ABSOLUTE AUTO 6.41 K/mm3 (1.96-9.15); NEUTROPHILS PERCENT AUTO 58 % (41-73); Platelet Count 104 K/mm3 (150-400); RDW Standard Deviation 48.8 fL (35.1-46.3); Red Blood Cell Count 6.04 M/mm3 (4.30-5.90); White Blood Cell Count 11.16 K/mm3 (4.00-11.30)
[2024-02-10] MEDS ORDERED: Albuterol 2.5 MG/3 ML VIAL INH SCH (20:00)
[2024-02-10 20:08] LABS: International Normalized Ratio 1.03
[2024-02-10 20:12] LABS: Magnesium, Blood 1.6 mg/dL (1.6-2.4)
[2024-02-10 20:21] LABS: Alanine Aminotransfer (ALT/SGP 165 U/L (12-78); Albumin, Blood 3.2 g/dL (3.4-5.0); Albumin/Globulin Ratio 0.9 (0.8-1.8); Alk Phos 118 U/L (50-136); Anion Gap 14 mmol/L (3-11); Aspartate Aminotrans (AST/SGOT 136 U/L (12-37); Blood Urea Nitrogen 17 mg/dL (8-24); Bun/Creatinine Ratio 14.2 (12.0-20.0); CO2, Blood 27 mmol/L (21-32); Calcium, Blood 8.6 mg/dL (8.5-10.1); Chloride, Blood 104 mmol/L (98-108); Globulin, Blood 3.7 g/dL (2.2-4.0); Glomerular Filtration Rate 65 (60-); Glucose, Blood 173 mg/dL (70-99); Potassium, Blood 3.8 mmol/L (3.5-5.5); Sodium, Blood 141 mmol/L (136-145); Total Protein, Blood 6.9 g/dL (6.4-8.2)
[2024-02-10 20:22] LABS: Ethanol (Alcohol), Blood, Med <3 mg/dL
[2024-02-10 20:26] LABS: Source, Urine Foley catheter
[2024-02-10 20:30] LABS: Bilirubin, Urine Neg (Neg); Blood, Urine 5+ (Neg); Color, Urine Yellow (P-Yellow); Glucose Qualitative, Urine Neg (Neg); Ketones, Urine Neg (Neg); Leukocyte Esterase, Urine Neg (Neg); Nitrite, Urine Neg (Neg); Protein, Urine 4+ (Neg); Urobilinogen, Urine 1+ (Normal)
[2024-02-10 20:37] LABS: Appearance, Urine Clear (Clear)
[2024-02-10 20:38] LABS: Bacteria Rare /hpf; Hyaline Casts 0-2 /lpf (0-2); Squamous Epithelial Cells Not Seen /hpf (Few); White Blood Cells, Urine 0-2 /hpf (0-5)
[2024-02-10 21:06] LABS: PCO2 Venous 54.5 mmHg (38-42); pH Blood Venous 7.28 (7.34-7.37)
[2024-02-10 21:07] LABS: Base Excess Venous -1.2 mmol/L; Bicarbonate Venous 22.6 mmol/L (24.0-30.0)
[2024-02-10 21:09] LABS: U Amphetamine Screen Not Detected; U Barbituate Screen Not Detected; U Benzodiazapine Screen Not Detected; U Buprenorphine Screen Not Detected; U Cannabinoids Screen Not Detected; U Cocaine Screen Not Detected; U Methadone Screen Not Detected; U Methamphetamine Screen Not Detected; U Opiates Screen Not Detected; U Oxycodone Screen Not Detected; U Phencyclidine Screen Not Detected
[2024-02-10] MEDS ORDERED: levETIRAcetam 2,000 MG in NS 100 ML IV ONE (22:15)
[2024-02-10] MEDS ORDERED: Lactated Ringer's 1,000 ML IV ONE (23:41)
[2024-02-10 23:46] VITALS: BP 113/67
[2024-02-10] MEDS ORDERED: Dexamethasone Sod Phos 10 MG/ML 1ML VIAL ONE (23:47)
== END 2024-02-11 00:46 | disposition short-term general hospital (02) ==
LOC: ER 19:22
PROVIDERS: Emergency Medicine
DX: R41.82 Altered mental status, unspecified (principal); J96.90 Respiratory failure, unspecified, unspecified whether with hypoxia or hypercapnia; Z87.891 Personal history of nicotine dependence
CPT/HCPCS: 31500; 51702; 70450; 71045; 80053; 80320; 81001; 82803; 83605; 83690; 83735; 83880; 84484; 85025; 85610; 87070; 87205; 93005; 93010; 94002; 94644; 94664; 96365-59; 96375; 99291-25; J1100; J1953; J2704; J7030; J7120